=== PATIENT | female | born 1980 | race African-American/Black ===

== ENCOUNTER 2022-03-29 17:04 | Emergency (ER) | payer BC ==
[~2022-03-29] VITALS: Ht 175.3 cm; Wt 113.0 kg
[2022-03-29 17:13] VITALS: BP 132/78
--- NOTE | 2022-03-29 17:37 | PHYS DOC ---
Past History Past Surgical History: No Surgical History General Adult EDM: Chief Complaint: LOWER EXTREMITY SWELLING HPI: HPI: Patient is a 41-year-old female who presents to the emergency department for swelling to bilateral feet that started 2 weeks ago. Patient reports that she had the symptoms at home in [place] and she was seen in the emergency department for the symptoms and they told her that she had arthritis in [place] fasciitis and gave her anti-inflammatory medications in which she did not take. Patient then flew into [place] and reports that over the last week she has had increased swelling in her feet. She reports shortness of breath that she has had since being Covid positive in November. She denies any fevers or chest pain. She denies any history of DVTs or blood clots. Patient was seen in urgent care who referred her to the ER to rule out DVT. Review of Systems: Review of Systems: Constitutional:see HPI Respiratory: see HPI Cardiovascular: see HPI Musculoskeletal: see HPI Integument: see HPI Allergies: Allergies: Allergies Coded Allergies Type Severity Reaction Last Updated Verified No Known Drug Allergies 03/29/22 No Physical Exam: PE: Constitutional: Well developed, well nourished, no acute distress, non-toxic appearance. [] HENT: Normocephalic, atraumatic, bilateral external ears normal, oropharynx moist, no oral exudates, nose normal. [] Eyes: PERRL, EOMI, conjunctiva normal, no discharge. [] Neck: Normal range of motion, no tenderness, supple, no stridor. [] Cardiovascular:Heart rate regular rhythm, no murmur [] Lungs & Thorax: Bilateral breath sounds clear to auscultation [] Abdomen: Bowel sounds normal, soft, no tenderness, no masses, no pulsatile masses. [] Skin: Warm, dry, no erythema, no rash. [] Back: No tenderness, normal ROM Extremities: No tenderness, no cyanosis, no clubbing, ROM intact,1+ pitting edema noted to rle, trace edema noted to lle, patient reports LLE tenderness, neuro intact, no wounds noted, ROM intact. Neurologic: Alert and oriented X 3, normal motor function, normal sensory function, no focal deficits noted. [] Psychologic: Affect normal, judgement normal, mood normal. [] Current Patient Data: Vital Signs: Vital Signs Date Time Temp Pulse Resp B/P (MAP) Pulse Ox O2 Delivery O2 Flow Rate FiO2 03/29/22 17:13 97.8 81 18 132/78 (96) 97 Room Air EKG: EKG: [] Radiology/Procedures: Radiology/Procedures: []REASON: lower extremity swelling/tenderness PROCEDURE: VENOUS LOWER EXT BILATERAL Bilateral lower extremity venous duplex Doppler ultrasound HISTORY: Bilateral leg pain and swelling. FINDINGS: No DVT on grayscale sonography with compressibility, patent collar Doppler blood flow and augmentation of blood flow of the common femoral veins, profunda femoral veins, superficial femoral veins and popliteal veins. No DVT evident with patent color Doppler level of the posterior tibial and peroneal veins in the calves. IMPRESSION: Negative legs for DVT. Electronically signed by: Rikki Wiley MD (03/29/2022 6:09 PM) [facility] DICTATED AND SIGNED BY: RIKKI WILEY MD DATE: 03/29/221807 CC: DUNIA HILL APRN; NON,STAFF ~ Heart Score: C/O Chest Pain: No Risk Factors: Risk Factors: DM, Current or recent (<one month) smoker, HTN, HLP, family histo ry of CAD, obesity. Risk Scores: Score 0 - 3: 2.5% MACE over next 6 weeks - Discharge Home Score 4 - 6: 20.3% MACE over next 6 weeks - Admit for Clinical Observation Score 7 - 10: 72.7% MACE over next 6 weeks - Early Invasive Strategies Course & Med Decision Making: Course & Med Decision Making Pertinent Labs and Imaging studies reviewed. (See chart for details) Patient presents to the ER for bilateral foot pain x2 weeks an increased swelling to feet. Patient was referred to ER from to r/o DVT. Patients Wells Score is 0. Patient has no had any previous DVT, recent paralysis, the pitting edema is not confined to symptomatic leg and she has edema to BLE and pain to BLE, her entire leg is not swollen, no recent surgeries or active cancer. Work up includes US of BLE. Just on did not show any evidence of DVT. Patient is advised to elevate her extremities to help with swelling and take Tylenol and ibuprofen at home for pain. She was given a dose of pain medication while in the ER. Patient is able to bear weight and ambulate, normal range of motion and neurovascularly intact. I discussed with patient all findings and diagnostic testing as well as the need to follow-up with PCP for further evaluation and treatment or return to the ER if any new or worsening symptoms. Strict return precautions were also discussed at length. Patient voiced understanding and agreement with the plan. Patient is hemodynamically stable at the time of disposition. Dragon Disclaimer: Dragon Disclaimer: This electronic medical record was generated, in whole or in part, using a voice recognition dictation system. Departure Departure: Impression: Primary Impression: Lower extremity edema Disposition: HOME / SELF CARE / HOMELESS Condition: GOOD Patient Instructions: Peripheral Edema Additional Instructions: You were seen in the emergency department today for lower extremity swelling. The ultrasound did not show any evidence of DVT. Please take anti-inflammatory medications like ibuprofen or naproxen and elevate your extremities to help with your swelling. Follow-up with your primary care provider when you return home regarding your ER visit. Return to the emergency department if you develop chest pain, shortness of breath, high fevers refractory to treatment, intractable nausea vomiting or any new or worsening concerns. DUNIA HILL CURATOR March 29, 2022 17:37
--- NOTE | 2022-03-29 18:11 | RAD ---
Bilateral lower extremity venous duplex Doppler ultrasound HISTORY: Bilateral leg pain and swelling. FINDINGS: No DVT on grayscale sonography with compressibility, patent collar Doppler blood flow and a ugmentation of blood flow of the common femoral veins, profunda femoral veins, superficial femoral ve ins and popliteal veins. No DVT evident with patent color Doppler level of the posterior tibial and p eroneal veins in the calves. IMPRESSION: Negative legs for DVT. Electronically signed by: Rikki Wiley MD (03/29/2022 6:09 PM) [facility]
[2022-03-29] MEDS ORDERED: HYDROcodone/APAP 5/325MG 1 TAB TABLET PO ONE (18:15)
== END 2022-03-29 18:25 | disposition home or self-care (01) ==
LOC: ER 17:04
DX: R60.0 Localized edema (principal); R06.02 Shortness of breath
CPT/HCPCS: 93970; 99284